=== PATIENT | female | born 1995 | race Caucasian/White ===

== ENCOUNTER 2021-02-15 23:49 | Emergency (ER) | payer SELFPAY ==
[2021-02-16] MEDS ORDERED: Ketorolac Tromethamine 30 MG/ML VIAL ONE (02:15)
== END 2021-02-16 03:24 | disposition home or self-care (01) ==
LOC: ERS 23:49
DX: S16.1XXA Strain of muscle, fascia and tendon at neck level, initial encounter (principal); X58.XXXA Exposure to other specified factors, initial encounter
CPT/HCPCS: 96372; 99283; J1885